=== PATIENT | female | born 1960 | race Caucasian/White ===

== ENCOUNTER 2019-04-04 16:12 | Observation (INO) ==
[2019-04-04] MEDS ORDERED: Morphine Sulfate 2 MG/ML SYRINGE IVP PRN ×2 (18:25→18:51)
[2019-04-04] MEDS ORDERED: 0.9 % Sodium Chloride 1,000 ML IVC SCH (18:30)
[2019-04-04] MEDS ORDERED: Ondansetron 4 MG/2 ML VIAL IVP PRN (19:15)
[2019-04-04] MEDS ORDERED: Dexamethasone 4 MG/ML VIAL ONE ×2 (19:20→23:59)
[2019-04-04] MEDS ORDERED: *HR* Midazolam HCl 2 MG/2 ML VIAL ONE ×2 (19:20→19:23)
[2019-04-04] MEDS ORDERED: *HR* Succinylcholine 200 MG/10 ML VIAL IVP ONE (19:20)
[2019-04-04] MEDS ORDERED: *HR* Rocuronium Bromide 50 MG/5 ML VIAL ONE (19:20)
[2019-04-04] MEDS ORDERED: Ondansetron 4 MG/2 ML VIAL ONE (19:20)
[2019-04-04] MEDS ORDERED: Lidocaine -MPF 2% 2 ML VIAL ONE (19:20)
[2019-04-04] MEDS ORDERED: *HR* Propofol 200 MG/20 ML VIAL IVP ONE (19:20)
[2019-04-04] MEDS ORDERED: *HR* FentaNYL (PF) 100 MCG/2 ML VIAL ONE ×2 (19:20→23:49)
[2019-04-04] MEDS ORDERED: Lidocaine -MPF 4% 5 ML AMPUL ONE (19:20)
[2019-04-04] MEDS ORDERED: Albuterol 2.5 MG/3 ML NEBULIZER ONE (21:30)
[2019-04-04] MEDS ORDERED: Acetaminophen IV 1,000 MG/100 ML INFUS..BTL ONE (21:54)
[2019-04-04] MEDS ORDERED: Scopolamine Patch 1.5 MG PATCH.TD72 ONE (21:54)
[2019-04-04] MEDS ORDERED: Famotidine 20 MG/2 ML VIAL ONE (21:55)
[2019-04-04] MEDS ORDERED: CefOXitin 1,000 MG VIAL ONE (22:07)
[2019-04-04] MEDS ORDERED: CefOXitin 2,000 MG VIAL ONE (22:45)
[2019-04-04] MEDS ORDERED: *HR* Promethazine 25 MG/ML VIAL IVP PRN (23:34)
[2019-04-04] MEDS ORDERED: *HR* Labetalol 20 MG/4 ML SYRINGE IVP PRN (23:34)
[2019-04-04] MEDS ORDERED: *HR* HYDROmorphone 2 MG TABLET PO PRN (23:34)
[2019-04-04] MEDS ORDERED: *HR* HYDROmorphone (PF) 1 MG/ML SYRINGE IVP PRN (23:34)
[2019-04-04] MEDS ORDERED: *HR* OxyCODONE Immed Rel 5 MG TABLET PO PRN (23:34)
[2019-04-04] MEDS ORDERED: Ketorolac 30 MG/ML VIAL ONE (23:44)
[2019-04-04] MEDS ORDERED: *HR* Magnesium Sulfate 1 GM/2 ML VIAL ONE (23:44)
[2019-04-04] MEDS ORDERED: Neostigmine Methylsulfate 3 MG/3 ML SYRINGE ONE (23:51)
[2019-04-05] MEDS ORDERED: cefOXitin 2,000 MG in 0.9 % Sodium Chloride Mini Bag 100 ML IVPB SCH
[2019-04-05] MEDS ORDERED: Ondansetron 4 MG/2 ML VIAL IVP PRN (00:43)
[2019-04-05] MEDS: 0.9 % Sodium Chloride 1,000 ML IVC SCH ×3 (03:12→23:38)
[2019-04-05] MEDS: *HR* OxyCODONE/APAP 10/325 TABLET PO PRN ×3 (06:55→20:44)
[2019-04-05] MEDS: clonazePAM 0.5 MG TABLET PO SCH ×4 (08:19→20:44)
[2019-04-05] MEDS: cefOXitin 2,000 MG in 0.9 % Sodium Chloride Mini Bag 100 ML IVPB SCH ×3 (08:19→23:40)
[2019-04-05] MEDS: Loratadine 10 MG TABLET PO SCH (08:19)
[2019-04-05] MEDS: Furosemide 40 MG TABLET PO SCH ×2 (08:19→17:29)
[2019-04-05] MEDS: FLUoxetine 20 MG CAPSULE PO SCH (08:19)
[2019-04-05] MEDS: Gabapentin 400 MG CAPSULE PO SCH ×3 (08:19→20:44)
[2019-04-05] MEDS: Morphine Sulfate 2 MG/ML SYRINGE IVP PRN ×3 (11:24→23:37)
[2019-04-05] MEDS: Nicotine 14 MG PATCH.TD24 TD SCH (13:17)
[2019-04-06] MEDS: *HR* OxyCODONE/APAP 10/325 TABLET PO PRN ×2 (04:17→10:24)
[2019-04-06] MEDS: FLUoxetine 20 MG CAPSULE PO SCH (08:08)
[2019-04-06] MEDS: clonazePAM 0.5 MG TABLET PO SCH (08:08)
[2019-04-06] MEDS: Furosemide 40 MG TABLET PO SCH (08:09)
[2019-04-06] MEDS: Loratadine 10 MG TABLET PO SCH (08:09)
[2019-04-06] MEDS: Gabapentin 400 MG CAPSULE PO SCH (08:09)
[2019-04-06] MEDS: Nicotine 14 MG PATCH.TD24 TD SCH (08:10)
[2019-04-06] MEDS: cefOXitin 2,000 MG in 0.9 % Sodium Chloride Mini Bag 100 ML IVPB SCH (08:11)
[2019-04-06 10:22] VITALS: BP 136/77
== END 2019-04-06 12:45 | disposition home or self-care (01) ==
LOC: 3ANU
PROVIDERS: ADMIT Surgery; ATTEND Surgery

== ENCOUNTER 2019-12-27 08:48 | Observation (INO) ==
[2019-12-27] MEDS ORDERED: *HR* LORazepam 2 MG/ML VIAL IVP ONE ×2 (09:02→12:38)
[2019-12-27 09:16] LABS: Basophils # 0.1 K/mcL (0.0-0.2); Basophils % 0.4 %; Eosinophils # 0.3 K/mcL (0.0-0.6); Eosinophils % 2.2 %; Hematocrit 38.2 % (35.3-44.9); Hemoglobin 12.1 g/dL (11.5-15.4); Immature Granulocytes % 1.1 % (0-4); Lymphocytes # 1.9 K/mcL (0.6-4.6); Lymphocytes % 14.1 %; Mean Corpuscular HGB Conc 31.7 g/dL (31.6-35.5); Mean Corpuscular Hemoglobin 27.9 pg (28.0-33.3); Mean Platelet Volume 10.5 fL (9.4-12.4); Monocytes # 0.8 K/mcL (0.0-1.3); Neutrophils # 10.3 K/mcL (1.6-8.9); Platelet Count 362 K/mcL (140-400); Red Blood Count 4.34 M/mcL (3.82-4.97); Red Cell Distribution Width 13.6 % (11.5-14.5); Segmented Neutrophils % 76.2 %; White Blood Count 13.5 K/mcL (4.3-11.1)
[2019-12-27 09:40] LABS: Albumin 4.2 g/dL (3.5-5.7); Albumin/Globulin Ratio 1.3 (1.1-2.2); Bilirubin,Total 0.4 mg/dL (0.3-1.0); Calcium 8.9 mg/dL (8.6-10.3); Globulin 3.3 g/dL (2.4-3.5); Potassium 3.5 mEq/L (3.5-5.1); Total Protein 7.5 g/dL (6.4-8.9)
[2019-12-27 10:28] LABS: Bilirubin,Urine Negative (Negative); Blood,Urine Moderate (Negative); Clarity,Urine Clear (Clear); Color,Urine Yellow (Yellow); Glucose,Urine (UA) Normal (Normal); Ketones,Urine Negative (Negative); Leukocyte Esterase,Urine Small (Negative); Nitrite,Urine Negative (Negative); Protein,Urine Negative (Neg-Trace); Specific Gravity,Urine 1.009 (1.010-1.025); Urobilinogen,Urine Normal (Normal)
[2019-12-27 10:32] LABS: Bacteria,Urine Few per hpf (None-Few); Hyaline Casts,Urine None Seen per lpf (None-Few); RBC,Urine 0-3 per hpf (0-3); Squamous Epithelial Cell,Urine Many per lpf (None-Few); WBC,Urine 0-3 per hpf (0-3)
[2019-12-27 10:41] LABS: Amphetamine Screen,Urine Negative ng/mL (Cutoff=1000); Barbiturate Screen,Urine Negative ng/mL (Cutoff=200); Benzodiazepines Screen,Urine Negative ng/mL (Cutoff=200); Cannabinoid Screen,Urine Negative ng/mL (Cutoff = 50); Cocaine Screen,Urine Negative ng/mL (Cutoff= 300); Opiate Screen,Urine Negative ng/mL (Cutoff=300); Phencyclidine Screen,Urine Negative ng/mL (Cutoff=25)
[2019-12-27] MEDS ORDERED: 0.9 % Sodium Chloride 1,000 ML IVC ONE (11:39)
[2019-12-27] MEDS ORDERED: Naloxone 0.4 MG/ML INJ IVP PRN (15:59)
[2019-12-27] MEDS ORDERED: 0.9 % Sodium Chloride 1,000 ML IVC SCH (16:15)
[2019-12-27] MEDS: cefTRIAXone 1,000 MG in Water for inj. (sterile) 10 ML IVP SCH (17:12)
[2019-12-27] MEDS: Acetaminophen 325 MG TABLET PO PRN ×2 (17:12→23:41)
[2019-12-28 01:20] LABS: Basophils # 0.1 K/mcL (0.0-0.2); Basophils % 0.7 %; Eosinophils # 0.2 K/mcL (0.0-0.6); Eosinophils % 2.7 %; Hematocrit 30.8 % (35.3-44.9); Hemoglobin 10.1 g/dL (11.5-15.4); Immature Granulocytes % 0.5 % (0-4); Lymphocytes # 2.2 K/mcL (0.6-4.6); Lymphocytes % 27.6 %; Mean Corpuscular HGB Conc 32.8 g/dL (31.6-35.5); Mean Corpuscular Volume 88.5 fL (83.0-100.0); Mean Platelet Volume 10.7 fL (9.4-12.4); Monocytes # 0.7 K/mcL (0.0-1.3); Monocytes % 8.7 %; Neutrophils # 4.8 K/mcL (1.6-8.9); Platelet Count 256 K/mcL (140-400); Red Blood Count 3.48 M/mcL (3.82-4.97); Red Cell Distribution Width 13.6 % (11.5-14.5); Segmented Neutrophils % 59.8 %; White Blood Count 8.1 K/mcL (4.3-11.1)
[2019-12-28 01:41] LABS: Calcium 8.1 mg/dL (8.6-10.3); Potassium 3.5 mEq/L (3.5-5.1)
[2019-12-28] MEDS ORDERED: clonazePAM 0.5 MG TABLET PO PRN (07:48)
[2019-12-28] MEDS ORDERED: Albuterol 2.5 MG/3 ML NEBULIZER IH PRN (07:48)
[2019-12-28] MEDS: Acetaminophen 325 MG TABLET PO PRN ×2 (08:59→17:22)
[2019-12-28] MEDS: Gabapentin 300 MG CAPSULE PO SCH ×3 (08:59→20:02)
[2019-12-28] MEDS: BuPROPion SR (12 HR) 150 MG TABLET PO SCH ×2 (08:59→20:02)
[2019-12-28] MEDS: FLUoxetine 20 MG CAPSULE PO SCH (09:00)
[2019-12-28] MEDS: cefTRIAXone 1,000 MG in Water for inj. (sterile) 10 ML IVP SCH (09:00)
[2019-12-28] MEDS: *HR* OxyCODONE/APAP 5/325 TABLET PO PRN ×2 (13:56→20:02)
[2019-12-28] MEDS: Aspirin 81 MG TAB.CHEW PO SCH (13:57)
[2019-12-29] MEDS: Acetaminophen 325 MG TABLET PO PRN (01:07)
[2019-12-29] MEDS: *HR* OxyCODONE/APAP 5/325 TABLET PO PRN (05:16)
[2019-12-29 05:20] LABS: Basophils % 0.6 %; Eosinophils # 0.2 K/mcL (0.0-0.6); Eosinophils % 2.8 %; Hematocrit 32.8 % (35.3-44.9); Hemoglobin 10.3 g/dL (11.5-15.4); Immature Granulocytes % 0.5 % (0-4); Mean Corpuscular HGB Conc 31.4 g/dL (31.6-35.5); Mean Corpuscular Hemoglobin 28.5 pg (28.0-33.3); Mean Corpuscular Volume 90.6 fL (83.0-100.0); Mean Platelet Volume 10.5 fL (9.4-12.4); Monocytes # 0.6 K/mcL (0.0-1.3); Monocytes % 9.7 %; Neutrophils # 3.6 K/mcL (1.6-8.9); Platelet Count 251 K/mcL (140-400); Red Blood Count 3.62 M/mcL (3.82-4.97); Red Cell Distribution Width 13.4 % (11.5-14.5); Segmented Neutrophils % 55.4 %; White Blood Count 6.4 K/mcL (4.3-11.1)
[2019-12-29 05:39] LABS: Calcium 8.7 mg/dL (8.6-10.3); Potassium 3.7 mEq/L (3.5-5.1)
[2019-12-29 07:29] VITALS: BP 148/76
[2019-12-29] MEDS: BuPROPion SR (12 HR) 150 MG TABLET PO SCH (07:56)
[2019-12-29] MEDS: FLUoxetine 20 MG CAPSULE PO SCH (07:56)
[2019-12-29] MEDS: cefTRIAXone 1,000 MG in Water for inj. (sterile) 10 ML IVP SCH (07:56)
[2019-12-29] MEDS: Gabapentin 300 MG CAPSULE PO SCH (07:56)
[2019-12-29] MEDS: Aspirin 81 MG TAB.CHEW PO SCH (07:56)
== END 2019-12-29 10:19 | disposition home or self-care (01) ==
LOC: 3BNU 08:48 → EMEROOARM 08:48 → SUATTDRO 12:53 → 3BNU 13:46
PROVIDERS: ADMIT Family Medicine; ATTEND Nurse Practitioner

== ENCOUNTER 2020-04-20 13:39 | Observation (INO) ==
[2020-04-20] MEDS ORDERED: *HR* Promethazine 25 MG/ML VIAL IVP PRN (15:59)
[2020-04-20] MEDS ORDERED: Ringers Solution, Lactated 500 ML IVC ONE (16:04)
[2020-04-20] MEDS ORDERED: Albuterol 2.5 MG/3 ML NEBULIZER IH PRN (17:34)
[2020-04-20] MEDS ORDERED: clonazePAM 0.5 MG TABLET PO PRN (17:34)
[2020-04-20] MEDS: Metoprolol XL (24 HR) Succ 50 MG TAB.ER.24H PO SCH (18:17)
[2020-04-20] MEDS: Budesonide/Formoterol 160/4.5 1 PUFF INH IH SCH (20:29)
[2020-04-20] MEDS: BuPROPion SR (12 HR) 150 MG TABLET PO SCH (20:58)
[2020-04-20] MEDS ORDERED: FLUoxetine 20 MG CAPSULE PO SCH (21:00)
[2020-04-20] MEDS: *HR* Heparin 5,000 UNIT/ML VIAL SQ SCH (21:01)
[2020-04-21] MEDS: Acetaminophen 325 MG TABLET PO PRN ×2 (04:05→12:27)
[2020-04-21 04:06] LABS: Hemoglobin 10.6 g/dL (11.5-15.4); Mean Corpuscular HGB Conc 32.1 g/dL (31.6-35.5); Mean Corpuscular Hemoglobin 28.5 pg (28.0-33.3); Mean Corpuscular Volume 88.7 fL (83.0-100.0); Mean Platelet Volume 10.8 fL (9.4-12.4); Platelet Count 247 K/mcL (140-400); Red Blood Count 3.72 M/mcL (3.82-4.97); Red Cell Distribution Width 13.3 % (11.5-14.5); White Blood Count 6.7 K/mcL (4.3-11.1)
[2020-04-21 04:26] LABS: Calcium 8.7 mg/dL (8.6-10.3); Potassium 3.6 mEq/L (3.5-5.1)
[2020-04-21] MEDS ORDERED: Nitroglycerin 0.4 MG TAB.SUBL SL PRN (04:45)
[2020-04-21] MEDS ORDERED: Nitroglycerin 0.4 MG TAB.SUBL SL ONE (04:47)
[2020-04-21] MEDS: *HR* Heparin 5,000 UNIT/ML VIAL SQ SCH (04:51)
[2020-04-21] MEDS ORDERED: Acetaminophen IV 1,000 MG/100 ML INFUS..BTL IVPB ONE (05:07)
[2020-04-21] MEDS: BuPROPion SR (12 HR) 150 MG TABLET PO SCH (08:11)
[2020-04-21] MEDS: Metoprolol XL (24 HR) Succ 50 MG TAB.ER.24H PO SCH (08:11)
[2020-04-21] MEDS: Budesonide/Formoterol 160/4.5 1 PUFF INH IH SCH (08:32)
[2020-04-21] MEDS ORDERED: Fluticasone Propionate Nasal 50 MCG/SPRAY BOTTLE NS SCH (09:00)
[2020-04-21 11:21] VITALS: BP 144/79
== END 2020-04-21 14:11 | disposition short-term general hospital (02) ==
LOC: 3BNU → SUATTDRO 15:20
PROVIDERS: ADMIT Internal Medicine; ATTEND Internal Medicine

== ENCOUNTER 2020-08-26 15:51 | Observation (INO) ==
[2020-08-26] MEDS ORDERED: Naloxone 0.4 MG/ML INJ IVP PRN (19:19)
[2020-08-26] MEDS ORDERED: 0.9 % Sodium Chloride 1,000 ML IVC SCH (19:30)
[2020-08-27] MEDS: *HR* Heparin 5,000 UNIT/ML VIAL SQ SCH ×2 (05:59→17:13)
[2020-08-27] MEDS: *HR* OxyCODONE/APAP 5/325 TABLET PO PRN ×3 (06:33→23:09)
[2020-08-27 06:56] LABS: Basophils # 0.1 K/mcL (0.0-0.2); Basophils % 0.9 %; Eosinophils # 0.3 K/mcL (0.0-0.6); Eosinophils % 3.7 %; Hematocrit 33.5 % (35.3-44.9); Hemoglobin 10.6 g/dL (11.5-15.4); Immature Granulocytes % 0.3 % (0-4); Lymphocytes # 1.7 K/mcL (0.6-4.6); Lymphocytes % 25.6 %; Mean Corpuscular HGB Conc 31.6 g/dL (31.6-35.5); Mean Corpuscular Hemoglobin 27.3 pg (28.0-33.3); Mean Corpuscular Volume 86.3 fL (83.0-100.0); Mean Platelet Volume 10.7 fL (9.4-12.4); Monocytes # 0.7 K/mcL (0.0-1.3); Monocytes % 10.2 %; Platelet Count 254 K/mcL (140-400); Red Blood Count 3.88 M/mcL (3.82-4.97); Segmented Neutrophils % 59.3 %; White Blood Count 6.8 K/mcL (4.3-11.1)
[2020-08-27 07:13] LABS: Calcium 8.5 mg/dL (8.6-10.3)
[2020-08-27] MEDS ORDERED: cloNIDine HCL 0.1 MG TABLET PO PRN (17:07)
[2020-08-27] MEDS: clonazePAM 0.5 MG TABLET PO PRN (20:26)
[2020-08-27] MEDS: BuPROPion SR (12 HR) 150 MG TABLET PO SCH (20:27)
[2020-08-27] MEDS: Gabapentin 400 MG CAPSULE PO SCH (20:27)
[2020-08-27] MEDS: FLUoxetine 20 MG CAPSULE PO SCH (20:27)
[2020-08-27] MEDS: Budesonide/Formoterol 160/4.5 1 PUFF INH IH SCH ×2 (20:30→22:49)
[2020-08-27] MEDS ORDERED: Acetaminophen 325 MG TABLET PO PRN (23:00)
[2020-08-28] MEDS: *HR* Heparin 5,000 UNIT/ML VIAL SQ SCH ×2 (06:02→18:04)
[2020-08-28 06:23] LABS: Basophils # 0.1 K/mcL (0.0-0.2); Basophils % 0.8 %; Eosinophils # 0.2 K/mcL (0.0-0.6); Eosinophils % 3.3 %; Hemoglobin 10.3 g/dL (11.5-15.4); Immature Granulocytes % 0.3 % (0-4); Lymphocytes % 29.8 %; Mean Corpuscular HGB Conc 32.2 g/dL (31.6-35.5); Mean Corpuscular Hemoglobin 28.3 pg (28.0-33.3); Mean Corpuscular Volume 87.9 fL (83.0-100.0); Mean Platelet Volume 10.4 fL (9.4-12.4); Monocytes # 0.4 K/mcL (0.0-1.3); Monocytes % 6.6 %; Neutrophils # 3.9 K/mcL (1.6-8.9); Platelet Count 219 K/mcL (140-400); Red Blood Count 3.64 M/mcL (3.82-4.97); Red Cell Distribution Width 13.7 % (11.5-14.5); Segmented Neutrophils % 59.2 %; White Blood Count 6.7 K/mcL (4.3-11.1)
[2020-08-28 06:47] LABS: Calcium 8.6 mg/dL (8.6-10.3); Potassium 3.2 mEq/L (3.5-5.1)
[2020-08-28] MEDS: Budesonide/Formoterol 160/4.5 1 PUFF INH IH SCH ×2 (08:00→19:53)
[2020-08-28] MEDS: Gabapentin 400 MG CAPSULE PO SCH ×3 (08:17→20:51)
[2020-08-28] MEDS: Loratadine 10 MG TABLET PO SCH (08:17)
[2020-08-28] MEDS: Metoprolol XL (24 HR) Succ 50 MG TAB.ER.24H PO SCH (08:17)
[2020-08-28] MEDS: Fluticasone Propionate Nasal 50 MCG/SPRAY BOTTLE NS SCH (08:18)
[2020-08-28] MEDS: BuPROPion SR (12 HR) 150 MG TABLET PO SCH ×2 (08:18→20:51)
[2020-08-28] MEDS: *HR* OxyCODONE/APAP 5/325 TABLET PO PRN ×2 (13:30→19:34)
[2020-08-28] MEDS: FLUoxetine 20 MG CAPSULE PO SCH (20:51)
[2020-08-28] MEDS: clonazePAM 0.5 MG TABLET PO PRN (20:54)
[2020-08-29] MEDS: *HR* OxyCODONE/APAP 5/325 TABLET PO PRN (04:22)
[2020-08-29] MEDS: *HR* Heparin 5,000 UNIT/ML VIAL SQ SCH (04:25)
[2020-08-29] MEDS: Gabapentin 400 MG CAPSULE PO SCH (07:34)
[2020-08-29] MEDS: Metoprolol XL (24 HR) Succ 50 MG TAB.ER.24H PO SCH (07:34)
[2020-08-29] MEDS: Loratadine 10 MG TABLET PO SCH (07:34)
[2020-08-29] MEDS: BuPROPion SR (12 HR) 150 MG TABLET PO SCH (07:34)
[2020-08-29] MEDS: Fluticasone Propionate Nasal 50 MCG/SPRAY BOTTLE NS SCH (07:35)
[2020-08-29 07:47] LABS: Hematocrit 32.3 % (35.3-44.9); Hemoglobin 10.4 g/dL (11.5-15.4); Mean Corpuscular HGB Conc 32.2 g/dL (31.6-35.5); Mean Corpuscular Hemoglobin 27.7 pg (28.0-33.3); Mean Corpuscular Volume 86.1 fL (83.0-100.0); Mean Platelet Volume 10.4 fL (9.4-12.4); Platelet Count 233 K/mcL (140-400); Red Blood Count 3.75 M/mcL (3.82-4.97); Red Cell Distribution Width 13.7 % (11.5-14.5); White Blood Count 6.9 K/mcL (4.3-11.1)
[2020-08-29 08:16] LABS: Calcium 8.9 mg/dL (8.6-10.3); Potassium 4.1 mEq/L (3.5-5.1)
[2020-08-29] MEDS: Budesonide/Formoterol 160/4.5 1 PUFF INH IH SCH (10:15)
[2020-08-29 11:57] VITALS: BP 130/54
== END 2020-08-29 12:45 | disposition home or self-care (01) ==
LOC: 3BNU
PROVIDERS: ADMIT Internal Medicine; ATTEND Internal Medicine

== ENCOUNTER 2020-10-11 12:45 | Inpatient (IN) ==
[2020-10-11] MEDS ORDERED: 0.9 % Sodium Chloride 1,000 ML IV ONE (14:06)
[2020-10-11] MEDS ORDERED: *HR* HYDROmorphone (PF) 1 MG/ML SYRINGE IVP ONE ×2 (14:15→16:42)
[2020-10-11] MEDS ORDERED: Isovue-370 500 ML BOTTLE IVP ONE (14:15)
[2020-10-11 14:48] LABS: Basophils # 0.1 K/mcL (0.0-0.2); Basophils % 0.6 %; Eosinophils # 0.3 K/mcL (0.0-0.6); Eosinophils % 2.5 %; Hematocrit 30.7 % (35.3-44.9); Hemoglobin 9.9 g/dL (11.5-15.4); Immature Granulocytes % 0.4 % (0-4); Lymphocytes # 1.5 K/mcL (0.6-4.6); Lymphocytes % 13.1 %; Mean Corpuscular HGB Conc 32.2 g/dL (31.6-35.5); Mean Corpuscular Hemoglobin 28.1 pg (28.0-33.3); Mean Corpuscular Volume 87.2 fL (83.0-100.0); Mean Platelet Volume 10.7 fL (9.4-12.4); Monocytes # 0.7 K/mcL (0.0-1.3); Monocytes % 6.4 %; Neutrophils # 8.5 K/mcL (1.6-8.9); Platelet Count 297 K/mcL (140-400); Red Blood Count 3.52 M/mcL (3.82-4.97); Red Cell Distribution Width 14.7 % (11.5-14.5); White Blood Count 11.1 K/mcL (4.3-11.1)
[2020-10-11 15:08] LABS: Albumin 3.8 g/dL (3.5-5.7); Albumin/Globulin Ratio 1.2 (1.1-2.2); Bilirubin,Direct 0.1 mg/dL (0.0-0.2); Bilirubin,Indirect 0.2 mg/dL (0.0-1.0); Bilirubin,Total 0.3 mg/dL (0.3-1.0); Globulin 3.3 g/dL (2.4-3.5); Potassium 3.7 mEq/L (3.5-5.1); Total Protein 7.1 g/dL (6.4-8.9)
[2020-10-11] MEDS ORDERED: Ondansetron 4 MG/2 ML VIAL IVP ONE (15:33)
[2020-10-11] MEDS ORDERED: Azithromycin 500 MG in 0.9 % Sodium Chloride 250 ML IVPB ONE (16:15)
[2020-10-11] MEDS ORDERED: cefTRIAXone 1,000 MG in 0.9 % Sodium Chloride Mini Bag 100 ML IVPB ONE (16:15)
[2020-10-11] MEDS ORDERED: Clindamycin 900 MG/50 ML 900 MG/50 ML IV.SOLN IVPB ONE (16:19)
[2020-10-11] MEDS ORDERED: Vancomycin 1,750 MG/517.5 ML IV.SOLN IVPB ONE (16:29)
[2020-10-11] MEDS ORDERED: Vancomycin 1,750 MG in 0.9 % Sodium Chloride 250 ML IVPB SCH (17:00)
[2020-10-11] MEDS ORDERED: Naloxone 0.4 MG/ML INJ IVP PRN (17:21)
[2020-10-11] MEDS ORDERED: clonazePAM 0.5 MG TABLET PO PRN (18:41)
[2020-10-11] MEDS ORDERED: cloNIDine HCL 0.1 MG TABLET PO PRN (18:41)
[2020-10-11] MEDS ORDERED: Ergocalciferol (VIT D2) 50,000 UNIT (1.25MG) CAP PO SCH (18:45)
[2020-10-11] MEDS ORDERED: 0.9 % Sodium Chloride 1,000 ML IVC SCH (18:45)
[2020-10-11] MEDS: Budesonide/Formoterol 160/4.5 1 PUFF INH IH SCH ×2 (20:14→20:15)
[2020-10-11] MEDS: Doxycycline 100 MG in 0.9 % Sodium Chloride Mini Bag 100 ML IVPB SCH (20:33)
[2020-10-11] MEDS: *HR* Heparin 5,000 UNIT/ML VIAL SQ SCH (20:35)
[2020-10-11] MEDS: BuPROPion SR (12 HR) 150 MG TABLET PO SCH (20:35)
[2020-10-11] MEDS: *HR* OxyCODONE/APAP 5/325 TABLET PO PRN (20:35)
[2020-10-11] MEDS: FLUoxetine 20 MG CAPSULE PO SCH (20:35)
[2020-10-11] MEDS: Gabapentin 400 MG CAPSULE PO SCH (20:35)
[2020-10-12 05:41] LABS: Basophils # 0.1 K/mcL (0.0-0.2); Basophils % 0.6 %; Eosinophils # 0.3 K/mcL (0.0-0.6); Eosinophils % 3.2 %; Hematocrit 26.6 % (35.3-44.9); Immature Granulocytes % 0.2 % (0-4); Lymphocytes # 1.8 K/mcL (0.6-4.6); Lymphocytes % 21.8 %; Mean Corpuscular HGB Conc 31.2 g/dL (31.6-35.5); Mean Corpuscular Hemoglobin 27.9 pg (28.0-33.3); Mean Corpuscular Volume 89.6 fL (83.0-100.0); Mean Platelet Volume 10.9 fL (9.4-12.4); Monocytes # 0.7 K/mcL (0.0-1.3); Monocytes % 8.8 %; Neutrophils # 5.3 K/mcL (1.6-8.9); Platelet Count 237 K/mcL (140-400); Red Blood Count 2.97 M/mcL (3.82-4.97); Red Cell Distribution Width 14.7 % (11.5-14.5); Segmented Neutrophils % 65.4 %; White Blood Count 8.1 K/mcL (4.3-11.1)
[2020-10-12 05:46] LABS: Hemoglobin 8.3 g/dL (11.5-15.4)
[2020-10-12] MEDS: Doxycycline 100 MG in 0.9 % Sodium Chloride Mini Bag 100 ML IVPB SCH ×2 (06:08→17:59)
[2020-10-12] MEDS: *HR* Heparin 5,000 UNIT/ML VIAL SQ SCH ×3 (06:10→20:09)
[2020-10-12 06:19] LABS: Calcium 8.3 mg/dL (8.6-10.3); Potassium 3.9 mEq/L (3.5-5.1)
[2020-10-12] MEDS ORDERED: Piperacillin/Tazobactam 3.375 GM in 0.9 % Sodium Chloride Mini Bag 100 ML IVPB SCH (08:00)
[2020-10-12] MEDS: Metoprolol XL (24 HR) Succ 50 MG TAB.ER.24H PO SCH (09:20)
[2020-10-12] MEDS: BuPROPion SR (12 HR) 150 MG TABLET PO SCH ×2 (09:20→20:08)
[2020-10-12] MEDS: Loratadine 10 MG TABLET PO SCH (09:20)
[2020-10-12] MEDS: Furosemide 40 MG TABLET PO SCH (09:20)
[2020-10-12] MEDS: Gabapentin 400 MG CAPSULE PO SCH ×3 (09:21→20:09)
[2020-10-12] MEDS: *HR* OxyCODONE/APAP 5/325 TABLET PO PRN (09:28)
[2020-10-12] MEDS: Fluticasone Propionate Nasal 50 MCG/SPRAY BOTTLE NS SCH (09:31)
[2020-10-12] MEDS: Budesonide/Formoterol 160/4.5 1 PUFF INH IH SCH ×2 (10:11→19:26)
[2020-10-12] MEDS ORDERED: *HR* OxyCODONE/APAP 10/325 TABLET PO PRN (12:29)
[2020-10-12] MEDS ORDERED: Morphine Sulfate 2 MG/ML SYRINGE IVP ONE ×2 (18:43→23:08)
[2020-10-12] MEDS: FLUoxetine 20 MG CAPSULE PO SCH (20:08)
[2020-10-12] MEDS: *HR* OxyCODONE/APAP 10/325 TABLET PO PRN (20:08)
[2020-10-12] MEDS ORDERED: Ondansetron 4 MG/2 ML VIAL IM ONE (20:11)
[2020-10-12] MEDS ORDERED: Ondansetron 4 MG/2 ML VIAL IVP ONE (20:21)
[2020-10-12] MEDS: 0.9 % Sodium Chloride 1,000 ML IVC SCH (23:46)
[2020-10-13] MEDS: *HR* OxyCODONE/APAP 10/325 TABLET PO PRN ×4 (04:03→23:43)
[2020-10-13 06:28] LABS: Basophils # 0.1 K/mcL (0.0-0.2); Basophils % 0.7 %; Eosinophils # 0.5 K/mcL (0.0-0.6); Eosinophils % 5.2 %; Hematocrit 28.6 % (35.3-44.9); Immature Granulocytes % 0.4 % (0-4); Lymphocytes # 1.4 K/mcL (0.6-4.6); Lymphocytes % 15.8 %; Mean Corpuscular HGB Conc 31.5 g/dL (31.6-35.5); Mean Corpuscular Hemoglobin 27.9 pg (28.0-33.3); Mean Corpuscular Volume 88.5 fL (83.0-100.0); Mean Platelet Volume 10.9 fL (9.4-12.4); Monocytes # 0.8 K/mcL (0.0-1.3); Monocytes % 9.3 %; Neutrophils # 6.2 K/mcL (1.6-8.9); Platelet Count 263 K/mcL (140-400); Red Blood Count 3.23 M/mcL (3.82-4.97); Red Cell Distribution Width 14.9 % (11.5-14.5); Segmented Neutrophils % 68.6 %; White Blood Count 9.1 K/mcL (4.3-11.1)
[2020-10-13] MEDS: Doxycycline 100 MG in 0.9 % Sodium Chloride Mini Bag 100 ML IVPB SCH ×2 (06:36→16:52)
[2020-10-13] MEDS: *HR* Heparin 5,000 UNIT/ML VIAL SQ SCH ×3 (06:36→20:11)
[2020-10-13 06:49] LABS: Calcium 8.6 mg/dL (8.6-10.3); Potassium 4.5 mEq/L (3.5-5.1)
[2020-10-13] MEDS ORDERED: *HR* FentaNYL (PF) 100 MCG/2 ML VIAL ONE ×2 (07:14→09:10)
[2020-10-13] MEDS ORDERED: Lidocaine -MPF 2% 2 ML VIAL ONE ×2 (07:15→09:09)
[2020-10-13] MEDS ORDERED: Lidocaine HCL 4 ML Topical Solution (Laryng-O-Jet Kit Sterile Pak) TP ONE (07:15)
[2020-10-13] MEDS ORDERED: *HR* Propofol 200 MG/20 ML VIAL IVP ONE ×2 (07:15→09:09)
[2020-10-13] MEDS ORDERED: *HR* Succinylcholine 200 MG/10 ML VIAL IVP ONE ×2 (07:15→09:09)
[2020-10-13] MEDS: Metoprolol XL (24 HR) Succ 50 MG TAB.ER.24H PO SCH (07:23)
[2020-10-13] MEDS: Gabapentin 400 MG CAPSULE PO SCH ×3 (07:48→20:11)
[2020-10-13] MEDS: BuPROPion SR (12 HR) 150 MG TABLET PO SCH ×2 (07:49→20:11)
[2020-10-13] MEDS: Loratadine 10 MG TABLET PO SCH (07:49)
[2020-10-13] MEDS: Furosemide 40 MG TABLET PO SCH (07:51)
[2020-10-13] MEDS: Fluticasone Propionate Nasal 50 MCG/SPRAY BOTTLE NS SCH (07:53)
[2020-10-13 08:25] LABS: Adenovirus Not Detected (Not Detect); Coronavirus 229E Not Detected (Not Detect); Coronavirus HKU1 Not Detected (Not Detect); Coronavirus NL63 Not Detected (Not Detect); Coronavirus OC43 Not Detected (Not Detect)
[2020-10-13 08:26] LABS: Bordetella Pertussis Not Detected (Not Detect); Chlamydophila pneumoniae Not Detected (Not Detect); Human Metapneumovirus Not Detected (Not Detect); Human Rhinovirus/Enterovirus Not Detected (Not Detect); Influenza A Subtype 2009 H1 Not Detected (Not Detect); Influenza B Not Detected (Not Detect); Mycoplasma pneumoniae Not Detected (Not Detect); Parainfluenza Virus 1 Not Detected (Not Detect); Parainfluenza Virus 2 Not Detected (Not Detect); Parainfluenza Virus 3 Not Detected (Not Detect); Parainfluenza Virus 4 Not Detected (Not Detect); Respiratory Syncytial Virus Not Detected (Not Detect); SARS-CoV-2 Not Detected (Not Detect)
[2020-10-13] MEDS ORDERED: Lidocaine -MPF 4% 5 ML AMPUL ONE (09:09)
[2020-10-13] MEDS ORDERED: Ondansetron 4 MG/2 ML VIAL ONE (09:09)
[2020-10-13] MEDS ORDERED: Albuterol 2.5 MG/3 ML NEBULIZER IH PRN (11:14)
[2020-10-13] MEDS ORDERED: Naloxone 0.4 MG/ML INJ IVP PRN ×2 (11:14→13:55)
[2020-10-13] MEDS ORDERED: Nitroglycerin 0.4 MG TAB.SUBL SL PRN (11:14)
[2020-10-13] MEDS ORDERED: Ondansetron 4 MG/2 ML VIAL IVP PRN ×2 (11:14→13:55)
[2020-10-13] MEDS ORDERED: *HR* HYDROmorphone PF 0.5 MG/0.5 ML SYRINGE IVP PRN (11:14)
[2020-10-13] MEDS: Budesonide/Formoterol 160/4.5 1 PUFF INH IH SCH ×2 (11:46→19:27)
[2020-10-13] MEDS ORDERED: EPHEDrine 50 MG/ML VIAL ONE (11:55)
[2020-10-13] MEDS: *HR* FentaNYL (PF) 100 MCG/2 ML VIAL IVP PRN ×2 (13:16→13:21)
[2020-10-13] MEDS ORDERED: clonazePAM 0.5 MG TABLET PO PRN (13:55)
[2020-10-13] MEDS ORDERED: cloNIDine HCL 0.1 MG TABLET PO PRN (13:55)
[2020-10-13] MEDS ORDERED: FLUoxetine 20 MG CAPSULE PO SCH (21:00)
[2020-10-13] MEDS: 0.9 % Sodium Chloride 1,000 ML IVC SCH (21:30)
[2020-10-14] MEDS ORDERED: Ondansetron 4 MG/2 ML VIAL IVP ONE (03:57)
[2020-10-14] MEDS: *HR* OxyCODONE/APAP 10/325 TABLET PO PRN ×2 (04:07→11:06)
[2020-10-14] MEDS: *HR* Heparin 5,000 UNIT/ML VIAL SQ SCH (05:11)
[2020-10-14] MEDS: Doxycycline 100 MG in 0.9 % Sodium Chloride Mini Bag 100 ML IVPB SCH (05:11)
[2020-10-14 08:06] LABS: Basophils % 0.2 %; Eosinophils % 0.3 %; Hematocrit 26.6 % (35.3-44.9); Hemoglobin 8.5 g/dL (11.5-15.4); Immature Granulocytes % 0.7 % (0-4); Lymphocytes # 1.5 K/mcL (0.6-4.6); Lymphocytes % 15.3 %; Mean Corpuscular Hemoglobin 28.5 pg (28.0-33.3); Mean Corpuscular Volume 89.3 fL (83.0-100.0); Mean Platelet Volume 10.6 fL (9.4-12.4); Monocytes # 0.9 K/mcL (0.0-1.3); Monocytes % 9.3 %; Neutrophils # 7.2 K/mcL (1.6-8.9); Platelet Count 260 K/mcL (140-400); Red Blood Count 2.98 M/mcL (3.82-4.97); Red Cell Distribution Width 14.6 % (11.5-14.5); Segmented Neutrophils % 74.2 %; White Blood Count 9.7 K/mcL (4.3-11.1)
[2020-10-14 08:23] LABS: Calcium 8.9 mg/dL (8.6-10.3)
[2020-10-14] MEDS ORDERED: Fluticasone Propionate Nasal 50 MCG/SPRAY BOTTLE NS SCH (09:00)
[2020-10-14] MEDS ORDERED: Furosemide 40 MG TABLET PO SCH (09:00)
[2020-10-14] MEDS ORDERED: Loratadine 10 MG TABLET PO SCH (09:00)
[2020-10-14] MEDS ORDERED: Metoprolol XL (24 HR) Succ 50 MG TAB.ER.24H PO SCH (09:00)
[2020-10-14] MEDS: Gabapentin 400 MG CAPSULE PO SCH (09:04)
[2020-10-14] MEDS: BuPROPion SR (12 HR) 150 MG TABLET PO SCH (09:04)
[2020-10-14 10:55] VITALS: BP 123/57
[2020-10-14] MEDS: Budesonide/Formoterol 160/4.5 1 PUFF INH IH SCH (11:05)
[2020-10-18] MEDS ORDERED: Ergocalciferol (VIT D2) 50,000 UNIT (1.25MG) CAP PO SCH (09:00)
== END 2020-10-14 12:43 | disposition home or self-care (01) | DRG 363 ==
LOC: EMEROOARM 12:45 → 3ANU 12:45
PROVIDERS: ADMIT Internal Medicine; ATTEND Internal Medicine

== ENCOUNTER 2021-01-30 10:34 | Observation (INO) ==
[2021-01-30 11:23] LABS: Basophils # 0.1 K/mcL (0.0-0.2); Basophils % 0.9 %; Eosinophils # 0.3 K/mcL (0.0-0.6); Eosinophils % 4.3 %; Hemoglobin 11.2 g/dL (11.5-15.4); Immature Granulocytes % 0.3 % (0-4); Lymphocytes # 1.8 K/mcL (0.6-4.6); Lymphocytes % 24.3 %; Mean Corpuscular HGB Conc 31.1 g/dL (31.6-35.5); Mean Corpuscular Hemoglobin 28.1 pg (28.0-33.3); Mean Corpuscular Volume 90.2 fL (83.0-100.0); Mean Platelet Volume 11.4 fL (9.4-12.4); Monocytes # 0.6 K/mcL (0.0-1.3); Monocytes % 7.7 %; Neutrophils # 4.6 K/mcL (1.6-8.9); Platelet Count 253 K/mcL (140-400); Prothrombin Time 11.2 Seconds (9.4-12.1); Red Blood Count 3.99 M/mcL (3.82-4.97); Segmented Neutrophils % 62.5 %; White Blood Count 7.4 K/mcL (4.3-11.1)
[2021-01-30 12:09] LABS: Alanine Aminotransferase 14 Units/L (7-52); Albumin 3.8 g/dL (3.5-5.7); Albumin/Globulin Ratio 1.3 (1.1-2.2); Alkaline Phosphatase 130 Units/L (34-104); Aspartate Amino Transferase 13 Units/L (13-39); BUN/Creatinine Ratio 12 (6-26); Bilirubin,Indirect 0.3 mg/dL (0.0-1.0); Bilirubin,Total 0.3 mg/dL (0.3-1.0); Blood Urea Nitrogen 19 mg/dL (8-23); Calcium 8.9 mg/dL (8.6-10.3); Carbon Dioxide 27 mEq/L (23-29); Chloride 107 mEq/L (98-107); Ethanol < 10 mg/dL (Less than 10); Glucose 108 mg/dL (70-105); Osmolality,Calculated 291 (280-300); Potassium 4.6 mEq/L (3.5-5.1); Sodium 139 mEq/L (136-145); Total Protein 6.8 g/dL (6.4-8.9); Troponin I < 0.03 ng/mL (< 0.04); eGFR For African Americans 41 (> 60); eGFR For Non-African Americans 34 (> 60)
[2021-01-30] MEDS ORDERED: Naloxone 0.4 MG/ML INJ IVP PRN (12:27)
[2021-01-30 14:25] LABS: Bilirubin,Urine Negative (Negative); Blood,Urine Negative (Negative); Clarity,Urine Clear (Clear); Color,Urine Light-Yellow (Yellow); Glucose,Urine (UA) Normal (Normal); Ketones,Urine Negative (Negative); Leukocyte Esterase,Urine Negative (Negative); Nitrite,Urine Negative (Negative); PH,Urine 6.5 pH Units (5.0-8.0); Protein,Urine Negative (Neg-Trace); Urobilinogen,Urine Normal (Normal)
[2021-01-30 16:01] LABS: Amphetamine Screen,Urine Negative ng/mL (Cutoff=1000); Barbiturate Screen,Urine Positive ng/mL (Cutoff=200); Benzodiazepines Screen,Urine Negative ng/mL (Cutoff=200); Cannabinoid Screen,Urine Negative ng/mL (Cutoff = 50); Cocaine Screen,Urine Negative ng/mL (Cutoff= 300); Opiate Screen,Urine Negative ng/mL (Cutoff=300); Phencyclidine Screen,Urine Negative ng/mL (Cutoff=25)
[2021-01-30] MEDS: Acetaminophen 325 MG TABLET PO PRN (18:29)
[2021-01-30] MEDS ORDERED: Ibuprofen 400 MG TABLET PO ONE (21:43)
[2021-01-31 03:15] LABS: Basophils # 0.1 K/mcL (0.0-0.2); Basophils % 0.7 %; Eosinophils # 0.3 K/mcL (0.0-0.6); Hematocrit 32.8 % (35.3-44.9); Hemoglobin 10.7 g/dL (11.5-15.4); Immature Granulocytes % 0.1 % (0-4); Lymphocytes # 2.5 K/mcL (0.6-4.6); Lymphocytes % 33.1 %; Mean Corpuscular HGB Conc 32.6 g/dL (31.6-35.5); Mean Corpuscular Hemoglobin 28.8 pg (28.0-33.3); Mean Corpuscular Volume 88.4 fL (83.0-100.0); Mean Platelet Volume 11.2 fL (9.4-12.4); Monocytes # 0.7 K/mcL (0.0-1.3); Monocytes % 8.6 %; Neutrophils # 4.1 K/mcL (1.6-8.9); Platelet Count 235 K/mcL (140-400); Red Blood Count 3.71 M/mcL (3.82-4.97); Red Cell Distribution Width 13.9 % (11.5-14.5); Segmented Neutrophils % 53.5 %; White Blood Count 7.7 K/mcL (4.3-11.1)
[2021-01-31 03:23] LABS: Prothrombin Time 12.1 Seconds (9.4-12.1)
[2021-01-31 03:35] LABS: Calcium 8.9 mg/dL (8.6-10.3); Magnesium 2.1 mg/dL (1.6-2.6); Potassium 4.2 mEq/L (3.5-5.1)
[2021-01-31 03:38] LABS: Chol/HDL Ratio 10.4 (0-4.9); Cholesterol 292 mg/dL (< 200); HDL Cholesterol 28 mg/dL (40-59); LDL Cholesterol,Calculated 200 mg/dL (< 100); Triglycerides 321 mg/dL (< 150); Troponin I < 0.03 ng/mL (< 0.04)
[2021-01-31 05:15] LABS: Estimated Average Glucose 100 mg/dl; Hemoglobin A1C 5.1 %
[2021-01-31] MEDS: Acetaminophen 325 MG TABLET PO PRN (08:04)
[2021-01-31] MEDS ORDERED: *HR* OxyCODONE/APAP 10/325 TABLET PO PRN (08:34)
[2021-01-31] MEDS ORDERED: tiZANidine 4 MG TABLET PO PRN (08:34)
[2021-01-31] MEDS ORDERED: Acetaminophen/Butalbital/CaffeineTABLET PO PRN (08:34)
[2021-01-31] MEDS ORDERED: BuPROPion SR (12 HR) 150 MG TABLET PO SCH (09:00)
[2021-01-31] MEDS ORDERED: Gabapentin 400 MG CAPSULE PO SCH (09:00)
[2021-01-31] MEDS ORDERED: clonazePAM 0.5 MG TABLET PO SCH (09:00)
[2021-01-31] MEDS ORDERED: Loratadine 10 MG TABLET PO SCH (09:00)
[2021-01-31 10:26] VITALS: BP 128/56
[2021-01-31] MEDS ORDERED: FLUoxetine 20 MG CAPSULE PO SCH (21:00)
== END 2021-01-31 11:55 | disposition home or self-care (01) ==
LOC: SUATTDRO → EMEROOARM 10:34 → 3BNU 10:34
PROVIDERS: ADMIT Pharmacist; ATTEND Pharmacist